=== PATIENT | female | born 1965 | race Caucasian/White ===

== ENCOUNTER → 2016-06-30 | Outpatient (CLI) | payer BC ==
[~2016-06-30] VITALS: Ht 160 cm; Wt 69.9 kg
[~2016-06-30] MED LIST: ALEV220C2 PO; BENEPOW7 PO; BIOT5TAB3 PO; CENTTAB47 PO; CETI1SYP16 PO; CITRTAB15 PO; IBUP200C PO; LIDOCAINE 2% INJ 100 MG/5 ML SDV (FOR ANES.) As Ordered ONE; MIRA3350 PO; NS 1,000 ML IV ONE; PROPOFOL 200 MG/20 ML VIAL As Ordered ONE; SING10TA32 PO; SUCR1SUS PO; VITA100072 PO; VITA500C24 PO; [UNRECOGNIZED DRUG - CODE] OP; [UNRECOGNIZED DRUG - CODE] PO; [UNRECOGNIZED DRUG - OTHER]; [UNRECOGNIZED DRUG - OTHER] PO; vitamin d3 PO
--- NOTE | 2016-06-30 09:40 | ROOR ---
Patient Name: Stephanie Colin Procedure Date: 06/30/2016 9:29 AM Date of : 1965 Age: 51 Room: [facility] Gender: Female Note Status: Finalized Procedure: Upper GI endoscopy Indications: Functional Dyspepsia, Heartburn Providers: Clay SCHUMACHER MD Referring MD: Cyndi WHIPPLE DO Requesting Provider: Medicines: Monitored Anesthesia Care Complications: No immediate complications. Procedure: Pre-Anesthesia Assessment: - The heart rate, respiratory rate, oxygen saturations, blood pressure, adequacy of pulmonary ventilation, and response to care were monitored throughout the procedure. The Endoscope was introduced through the mouth, and advanced to the second part of duodenum. The upper GI endoscopy was accomplished without difficulty. The patient tolerated the procedure well. Findings: The esophagus was normal. The stomach was normal. The examined duodenum was normal. Impression: - Normal esophagus. - Normal stomach. - Normal examined duodenum. - No specimens collected. Recommendation: - Observe patient's clinical course. - Continue present medications. Clay Schumacher MD Clay SCHUMACHER MD 06/30/2016 9:40:33 AM This report has been signed electronically. Number of Addenda: 0 Note Initiated On: 06/30/2016 9:29 AM Estimated Blood Loss: Estimated blood loss: none.
--- NOTE | 2016-06-30 09:53 | ROOR ---
Patient Name: Stephanie Colin Procedure Date: 06/30/2016 9:31 AM Date of : 1965 Age: 51 Room: [facility] Gender: Female Note Status: Finalized Procedure: Colonoscopy Indications: High risk colon cancer surveillance: Personal history of colonic polyps, Last colonoscopy: March 2012 Providers: Clay SCHUMACHER MD Referring MD: Cyndi WHIPPLE DO Requesting Provider: Medicines: Monitored Anesthesia Care Complications: No immediate complications. Procedure: Pre-Anesthesia Assessment: - The heart rate, respiratory rate, oxygen saturations, blood pressure, adequacy of pulmonary ventilation, and response to care were monitored throughout the procedure. The Colonoscope was introduced through the anus and advanced to the cecum, identified by appendiceal orifice and ileocecal valve. The colonoscopy was performed without difficulty. The patient tolerated the procedure well. The quality of the bowel preparation was good. Findings: The perianal and digital rectal examinations were normal. The colon (entire examined portion) appeared normal. Small Internal Hemorrhoids. Impression: - The colon is normal. - Small Internal Hemorrhoids. - No specimens collected. Recommendation: - Repeat colonoscopy in 5 years for surveillance based on personal history of previous adenomatous polyps. Clay Schumacher MD Clay SCHUMACHER MD 06/30/2016 9:53:03 AM This report has been signed electronically. Number of Addenda: 0 Note Initiated On: 06/30/2016 9:31 AM Estimated Blood Loss: Estimated blood loss: none.
[2016-06-30 10:10] VITALS: BP 140/84
== END | disposition home or self-care (01) ==
LOC: M OPP 08:32
PROVIDERS: ATTEND Internal Medicine Gastroenterology
DX: Z12.11 Encounter for screening for malignant neoplasm of colon (principal); K64.8 Other hemorrhoids; Z86.010 Personal history of colon polyps; K30 Functional dyspepsia; R00.8 Other abnormalities of heart beat; K58.9 Irritable bowel syndrome, unspecified; F41.9 Anxiety disorder, unspecified; R51 Headache; R06.83 Snoring; J00 Acute nasopharyngitis [common cold]; Z88.8 Allergy status to other drugs, medicaments and biological substances; Z88.5 Allergy status to narcotic agent; Z88.1 Allergy status to other antibiotic agents; Z79.899 Other long term (current) drug therapy; Z80.8 Family history of malignant neoplasm of other organs or systems; Z80.42 Family history of malignant neoplasm of prostate; Z80.3 Family history of malignant neoplasm of breast
CPT/HCPCS: 43235; G0105

== ENCOUNTER → 2018-07-25 | Outpatient (REF) | payer BC ==
[~2018-07-25] MED LIST changes: -IBUP200C PO; +IBUP200C25 PO; -LIDOCAINE 2% INJ 100 MG/5 ML SDV (FOR ANES.) As Ordered ONE; -NS 1,000 ML IV ONE; -PROPOFOL 200 MG/20 ML VIAL As Ordered ONE; +VITA100018 PO; -VITA100072 PO
[2018-07-25 20:25] LABS: CHLAMYDIA DNA AMPLIFICATION NEGATIVE (NEGATIVE); GC DNA AMPLIFICATION NEGATIVE (NEGATIVE)
== END ==
LOC: M LAB REF 16:59
PROVIDERS: ATTEND Family Medicine
DX: N76.0 Acute vaginitis (principal)

== ENCOUNTER → 2024-12-01 | Outpatient (CLI) | payer BC ==
[~2024-12-01] MED LIST changes: +ALPR0.25 PO; +B-12100010 PO; +BACI1TAB20 PO; +BORO1POW XX; +CITRTAB18 PO; +CLAR10CA3 PO; +DIGECAP7 PO; +ECHI125T PO; +ESTR10TA VG; +GNPTAB37 PO; +K 10100T PO; +LIVA2TAB PO; +MELA10CA6 PO; +MONT-5 PO; +MONT10TA97 PO; +MULTTAB61 PO; +OCUV1CAP4 PO; -SING10TA32 PO; +SUCR1ORA PO; -SUCR1SUS PO; +SUCR1TAB56 PO; +TURM500C10 PO; +VIT1TAB.13 PO; +VITA100093 PO; +VITA100T69 PO; +[UNRECOGNIZED DRUG - OTHER] PO; +zyflamend PO
== END ==
LOC: M PLAIMG 14:28
PROVIDERS: ATTEND Family Medicine
DX: M54.50 Low back pain, unspecified (principal); M47.816 Spondylosis without myelopathy or radiculopathy, lumbar region